=== PATIENT | female | born 1950 | race Caucasian/White ===

== ENCOUNTER → 2017-04-24 | Outpatient (CLI) | payer MEDICARE, OTHER ==
[~2017-04-24] MED LIST: OMEP20TA7 PO; PANT40TA2 PO; SUCR1TAB36 PO
--- NOTE | 2017-04-25 18:11 | Diagnostic Imaging Report ---
Bilateral screening mammogram 2D views with tomosynthesis. The current study was also evaluated with a Computer Aided Detection (CAD) system. INDICATION: Screening. No current complaints stated on the questionnaire. COMPARISON: 08/31/2010. FINDINGS: The breasts are composed of scattered fibroglandular densities. There is no mass, architectural distortion, or suspicious cluster of calcifications. Allowing for technique and positional differences, no suspicious change is seen. IMPRESSION: No significant change. ACR BI-RADS Category 2: Benign findings. Result letter will be mailed to the patient. Note: At least 10% of breast cancer is not imaged by mammography. Dictated by: Dictated on workstation # [id number]
== END ==
LOC: RAD 09:14
PROVIDERS: ATTEND Nurse Practitioner Family
DX: Z12.31 Encounter for screening mammogram for malignant neoplasm of breast (principal)
CPT/HCPCS: 77067

== ENCOUNTER → 2018-05-03 | Outpatient (CLI) | payer MEDICARE ==
--- NOTE | 2018-05-03 19:49 | Diagnostic Imaging Report ---
EXAMINATION: Bilateral screening mammogram. INDICATION: Screening. The current study was also evaluated with a Computer Aided Detection (CAD) system. 3D tomosynthesis was also performed and reviewed. COMPARISON: This study was compared to the prior exam of 04/24/2017. At this time, there are no current complaints. FINDINGS: There are scattered fibroglandular densities in both breasts which could obscure a lesion. Overall, there does not appear to have been any significant change when compared to the prior exam. No primary or secondary sign of malignancy is noted. 3D tomographic images fail to show any sign of malignancy. IMPRESSION: There is no radiographic evidence for malignancy. ACR BI-RADS Category 1: Negative. Result letter will be mailed to the patient. Note: At least 10% of breast cancer is not imaged by mammography. Dictated by: Dictated on workstation # [id number]
== END ==
LOC: RAD 08:17
PROVIDERS: ATTEND Nurse Practitioner Primary Care
DX: Z12.31 Encounter for screening mammogram for malignant neoplasm of breast (principal)
CPT/HCPCS: 77067

== ENCOUNTER → 2019-02-27 | Outpatient (CLI) | payer MEDICARE ==
[~2019-02-27] VITALS: Ht 154.9 cm; Wt 81.6 kg
[~2019-02-27] MED LIST changes: +CATHETER FLUSH 10 ML SYR IV PRN
[2019-02-27 09:33] VITALS: BP 123/72
--- NOTE | 2019-03-01 14:09 | Cardiology Stress Test Report ---
Stress Test Report Type of NM Stress Test: Test Type: NUCLEAR TREADMILL Date of Procedure/Referring: Date of Procedure: Feb 27, 2019 PCP Cyndee Miles MD Admitting Physician [facility] Indications: Atypical chest pain Baseline Heart Rate: 57 Baseline Blood Pressure: Blood Pressure Systolic: 123 Blood Pressure Diastolic: 72 Baseline EKG: Baseline EKG: sinus rhythm Summary & Conclusion: Summary: The patient was brought to the stress lab after informed consent was taken. Stress test was performed according to the Shaq protocol. Baseline rhythm sinus rhythm at 57 BPM. Blood pressure 123/72 mmHg. Patient exercised for 9 minutes and achieved 8.5 Mets. 92 percent of maximum predicted heart rate response. Maximum heart rate 151 BPM. Blood pressure 213/79 mmHg. No symptoms. No ST deviation. 10.09 mCi of Myoview were given for rest imaging and 31.0 mCi of Myoview given for stress imaging. Transient ischemic dilatation score 1.12, EF 75 percent. Normal wall motion. Normal myocardial perfusion imaging during rest and stress. Conclusion: Exercise stress test was negative for ischemia. Hypertensive response to exercise. Normal LV function with no wall motion abnormalities. Normal myocardial perfusion imaging during rest and stress. Fatou BUSH MD Mar 01, 2019 14:09
== END ==
LOC: CARD 07:18
PROVIDERS: ATTEND Family Medicine
DX: R07.89 Other chest pain (principal)
CPT/HCPCS: 78452; 93017

== ENCOUNTER → 2019-02-28 | Outpatient (CLI) | payer MEDICARE ==
[~2019-02-28] MED LIST changes: -CATHETER FLUSH 10 ML SYR IV PRN
--- NOTE | 2019-02-28 21:44 | Diagnostic Imaging Report ---
EXAMINATION: Magnetic resonance imaging of the left shoulder without contrast. DATE: February 28, 2019. COMPARISON: None. HISTORY: 69-year-old female, left shoulder pain. TECHNIQUE: Magnetic Resonance Imaging sequences were performed of the shoulder without contrast. FINDINGS: ROTATOR CUFF, LIGAMENTS, TENDONS, AND MUSCLES: The supraspinatus, infraspinatus, teres minor, and subscapularis tendons and muscles are intact. There is normal rotator cuff muscle bulk and signal. LONG HEAD OF BICEPS: The biceps labral attachment and long head of the biceps tendon is intact. The long head of the biceps tendon is normally positioned within the bicipital groove. GLENOHUMERAL JOINT: The humeral head is well positioned relative to the glenoid. The labrum is grossly intact. There is no identified paralabral cyst. The articular cartilage is grossly intact. There is no joint effusion. ACROMIOCLAVICULAR JOINT: The acromioclavicular joint is normally aligned. The coracoclavicular and coracoacromial ligaments are intact. There are minimal acromioclavicular degenerative changes without undersurface osteophyte. BONE: The bones all have normal configuration. There are small subcortical cystic changes in the superior humeral head underlying the infraspinatus tendon insertion. There is no acute fracture, bone contusion or evidence of osteonecrosis. BURSAE AND SOFT TISSUES: The bursae and soft tissue surrounding the shoulder are unremarkable. IMPRESSION: 1. Intact rotator cuff. 2. Minimal acromioclavicular degenerative changes without large undersurface osteophyte. 3. Grossly intact labrum and unremarkable additional glenohumeral joint assessment. 4. No acute fracture, bone contusion or evidence of osteonecrosis. Dictated by: Dictated on workstation # [id number]
== END ==
LOC: RAD 13:47
PROVIDERS: ATTEND Family Medicine
DX: M25.512 Pain in left shoulder (principal)
CPT/HCPCS: 73221

== ENCOUNTER 2021-12-08 05:43 | Outpatient (CLI) | payer MEDICARE, OTHER ==
[~2021-12-08] VITALS: Ht 155 cm; Wt 83.4 kg
[~2021-12-08 05:43] MED LIST changes: +OMEP20TA56 PO; -OMEP20TA7 PO
[2021-12-08] MEDS ORDERED: PIRO20CA2 PO (14:23)
== END 2021-12-08 14:34 | disposition home or self-care (01) ==
LOC: PREOP 05:43
PROVIDERS: ATTEND Surgery
DX: Z01.818 Encounter for other preprocedural examination (principal)

== ENCOUNTER 2021-12-20 08:02 | Day surgery (SDC) | payer MEDICARE, OTHER ==
[~2021-12-20] VITALS: Ht 155 cm; Wt 83.4 kg
[~2021-12-20 08:02] MED LIST changes: +PIRO20CA2 PO
[2021-12-20] MEDS ORDERED: LACTATED RINGERS 1,000 ML IV ONE (08:08)
[2021-12-20] MEDS ORDERED: LACTATED RINGERS 1,000 ML IV STA (08:10)
[2021-12-20 08:31] VITALS: BP 126/69
[2021-12-20] MEDS ORDERED: PROPOFOL INJECTION 50 ML IV ONE (09:41)
--- NOTE | 2021-12-20 09:47 | Progress Note-Pre Operative ---
Pre-Operative Progress Note H&P Reviewed The H&P was reviewed, patient examined and no changes noted. Date Seen by Provider: December 20, 2021 Time Seen by Provider: 09:47 Date H&P Reviewed: December 20, 2021 Time H&P Reviewed: 09:47 Pre-Operative Diagnosis: hx polyps RODRÍGUEZ HENRY DO December 20, 2021 09:47
[2021-12-20 10:25] VITALS: BP 130/68
--- NOTE | 2021-12-20 10:27 | Discharge Inst-Simple/Standard ---
Discharge Inst-Standard Patient Instructions/Follow Up Plan of Care/Instructions/FU: 2 weeks [place] Activity as Tolerated: Yes Discharge Diet: Regular Diet (high fiber) RODRÍGUEZ HENRY DO December 20, 2021 10:27
[2021-12-20 10:30] VITALS: BP 122/63
--- NOTE | 2021-12-20 10:32 | Progress Note-Post Operative ---
Post-Operative Progess Note Surgeon (s)/Sap Technical Architect (s) Surgeon RODRÍGUEZ HENRY DO Sap Technical Architect: na Pre-Operative Diagnosis hx polyps Post-Operative Diagnosis diverticulosis colon polyps Procedure & Operative Findings Date of Procedure 12/20/21 Procedure Performed/Findings colonoscopy c hot bx polypectomy x 2 and snare polypectomy x 2 Anesthesia Type per trimmer meat Estimated Blood Loss Estimated blood loss (mL): none Specimens/Packing Specimens Removed colon polyps RODRÍGUEZ HENRY DO December 20, 2021 10:32
[2021-12-20 10:50] VITALS: BP 128/59
--- NOTE | 2021-12-20 12:21 | Anesthesia-General Post-Op ---
MAC Patient Condition Mental Status/LOC: Same as Preop Cardiovascular: Satisfactory Nausea/Vomiting: Absent Respiratory: Satisfactory Pain: Controlled Complications: Absent Post Op Complications Complications None Follow Up Care/Instructions Patient Instructions None needed. Anesthesiology Discharge Order Discharge Order Patient is doing well, no complaints, stable vital signs, no apparent adverse anesthesia problems. No complications reported per nursing. ABAD ANDERSON CRNA December 20, 2021 12:21
--- NOTE | 2021-12-20 14:09 | OPERATIVE REPORT ---
DATE OF SERVICE: 12/20/2021 PREOPERATIVE DIAGNOSIS: History of polyps. POSTOPERATIVE DIAGNOSES: Diverticulosis and colon polyps. PROCEDURES PERFORMED: Colonoscopy with hot biopsy polypectomy x2 and snare polypectomy x2. SURGEON: Rodríguez Tran DO. ANESTHESIA: Per AUTOMOTIVE FINANCE MANAGER. ESTIMATED BLOOD LOSS: None. COMPLICATIONS: None. INDICATIONS FOR PROCEDURE: The patient is a 71-year-old female with history of polyps. She understands the risks and benefits of the procedure and wishes to proceed. Consent was signed in the chart. DESCRIPTION OF PROCEDURE: The patient was taken to the endoscopy suite and placed in the left lateral recumbent position. Timeout was performed. Digital rectal exam was performed. There were no palpable polyps, masses or ulcerations. Scope was inserted in the rectum and advanced all the way to cecum with minimal difficulty. Prep was adequate. Scope was slowly retracted back in the cecum, a small polyp was present, which hot biopsy polypectomy was performed. Scope was then continuously and slowly retracted back. No polyps, masses or ulcerations within the ascending colon. In the transverse colon, a polyp was present, which snare polypectomy was performed. Scope was then continuously and slowly retracted back. No polyps, masses or ulcerations within the remainder of the transverse and descending colon. In the sigmoid colon, two polyps were present, one snare polypectomy was performed and the other was hot biopsy polypectomy was performed. Throughout the majority of the colon, diverticulosis was present. Once in the rectum, scope was retroflexed noting no other pathology. Scope was returned to its normal position, slowly withdrawn until completely removed. The patient tolerated procedure well without any complications. She was taken to the recovery room in stable condition. RECOMMENDATIONS: We will recommend repeat colonoscopy in 5 years if benefits outweigh the risk. With diverticulosis, would recommend high fiber diet. Any issues before that will be seen at that time. CC: Cyndee Miles - requested, unable to deliver. Job ID: [id number] DocumentID: [id number] Dictated Date: 12/20/2021 10:31:59 Cement Mason Helper Date: 12/20/2021 14:09:02 Dictated By: RODRÍGUEZ TRAN DO
== END 2021-12-20 11:00 | disposition home or self-care (01) ==
LOC: ENDO 08:02
PROVIDERS: ATTEND Surgery
DX: Z12.11 Encounter for screening for malignant neoplasm of colon (principal); D12.2 Benign neoplasm of ascending colon; D12.3 Benign neoplasm of transverse colon; K63.5 Polyp of colon; K57.30 Diverticulosis of large intestine without perforation or abscess without bleeding
CPT/HCPCS: 88305